=== PATIENT | male | born 1995 | race Two or more races ===

== ENCOUNTER 2022-04-20 19:43 | Inpatient (IN) | payer OTHER ==
[~2022-04-20] VITALS: Ht 175.3 cm; Wt 84.8 kg
[2022-04-20] MEDS ORDERED: INSULIN REGULAR, HUMAN 100 UNITS/ML IVP ONE (21:30)
[2022-04-20 21:31] LABS: GLUCOMETER DEV NAME(LOC) ERT.5; GLUCOSE,POINT OF CARE 402 MG/DL (70-110)
[2022-04-20] MEDS ORDERED: SODIUM CHLORIDE 0.9% 1,000 ML ONE (21:40)
[2022-04-20 21:58] LABS: BASOPHILS % (AUTO) 1.2 % (0.0-2.0); HEMATOCRIT 39.4 % (41-53); HEMOGLOBIN 13.4 g/dL (13.5-17.5); LYMPHOCYTES # (AUTO) 2.3 K/uL (1.0-4.8); LYMPHOCYTES % (AUTO) 46.1 % (22.0-44.0); MEAN CORPUSCULAR HEMOGLOBIN 30.7 pg (26.0-34.0); MEAN CORPUSCULAR VOLUME 90 fL (80-100); MONOCYTES # (AUTO) 0.2 K/uL (0.1-1.0); MONOCYTES % (AUTO) 3.8 % (2.0-9.0); NEUTROPHILS # (AUTO) 2.4 K/uL (1.8-7.7); NEUTROPHILS % (AUTO) 47.9 % (40.0-70.0); PLATELET COUNT (AUTO) 131 K/uL (150-450); RED BLOOD CELL COUNT(AUTO) 4.37 MIL/uL (4.50-5.90); RED CELL DISTRIBUTION WIDTH 12.2 % (11.5-14.5)
[2022-04-20 22:16] LABS: ALANINE AMINOTRANSFERASE 22 U/L (12-78); ALBUMIN 3.5 g/dL (3.4-5.0); ALKALINE PHOSPHATASE 69 U/L (46-116); ANION GAP 10 mmol/L (8-16); ASPARTATE AMINOTRANSFERASE < 5 U/L (15-37); BILIRUBIN,TOTAL 0.3 mg/dL (0.1-1.0); CALCIUM, TOTAL 8.7 mg/dL (8.8-10.5); CARBON DIOXIDE 27 mmol/L (22-29); CHLORIDE 100 mmol/L (98-107); CREATININE 0.66 mg/dL (0.60-1.30); POTASSIUM 3.8 mmol/L (3.5-5.1); SODIUM SERUM 137 mmol/L (136-145); UREA NITROGEN, BLOOD 12 mg/dL (7-18)
[2022-04-20 22:17] LABS: GLOMERULAR FILTR. RATE CALC > 60 mL/min (>60); GLUCOSE,RANDOM 417 mg/dL (70-110)
[2022-04-20 22:32] LABS: ACETONE,BLOOD NEGATIVE (NEGATIVE)
[2022-04-20 22:44] LABS: COVID AG,FIA SOURCE NASAL SWAB
[2022-04-20] MEDS ORDERED: DEXTROSE 50%-WATER 25 GM/50 ML SYRINGE IVP PRN (23:15)
[2022-04-20] MEDS ORDERED: SODIUM CHLORIDE 0.9% 1,000 ML IV ONE (23:15)
[2022-04-20] MEDS ORDERED: ACETAMINOPHEN 325 MG TABLET PO PRN (23:15)
[2022-04-20] MEDS ORDERED: MAGNESIUM HYDROXIDE SUSPENSION 30 ML UDCUP PO PRN (23:15)
[2022-04-20] MEDS ORDERED: ONDANSETRON HCL 4 MG/2 ML VIAL IVP PRN (23:15)
[2022-04-20] MEDS ORDERED: ZOLPIDEM TARTRATE 5 MG TABLET PO PRN (23:15)
[2022-04-20 23:25] LABS: APPEARANCE,URINE CLEAR (CLEAR); BILIRUBIN,URINE NEGATIVE (NEGATIVE); GLUCOSE, URINE (UA) >=1000 mg/dL (NEGATIVE); KETONES,URINE NEGATIVE (NEGATIVE); LEUKOCYTE ESTERASE ,URINE NEGATIVE (NEGATIVE); NITRATE,URINE NEGATIVE (NEGATIVE); OCCULT BLOOD,URINE NEGATIVE (NEGATIVE); PROTEIN,URINE NEGATIVE (NEGATIVE); SPECIFIC GRAVITIY, URINE 1.031 (1.003-1.030); UROBILINOGEN,URINE <=1.0 mg/dL (<=1.0)
[2022-04-20 23:26] LABS: GLUCOMETER DEV NAME(LOC) ERT.5; GLUCOSE,POINT OF CARE 233 MG/DL (70-110)
[2022-04-20 23:31] LABS: AMPHET/METH SCREEN,URINE NEGATIVE (NEGATIVE); BARBITURATE SCREEN, URINE NEGATIVE (NEGATIVE); BENZODIAZEPINES SCREEN,URINE NEGATIVE (NEGATIVE); CANNABINOID SCREEN,URINE NEGATIVE (NEGATIVE); COCAINE SCREEN,URINE NEGATIVE (NEGATIVE); METHADONE SCREEN, URINE NEGATIVE (NEGATIVE); OPIATE SCREEN,URINE NEGATIVE (NEGATIVE)
[2022-04-20 23:38] LABS: PHENCYCLIDINE SCREEN,URINE NEGATIVE (NEGATIVE)
[2022-04-20 23:49] LABS: BACTERIA,URINE None Seen /HPF (None Seen); RBC,URINE None Seen /HPF (0-2); WBC,URINE None Seen /HPF (0-5)
[2022-04-21] MEDS: INSULIN LISPRO 100 UNITS/ML SQ PRN ×3 (07:25→20:44)
[2022-04-21 07:36] LABS: GLUCOMETER DEV NAME(LOC) ERT.5; GLUCOSE,POINT OF CARE 155 MG/DL (70-110)
[2022-04-21] MEDS: FAMOTIDINE 20 MG TABLET PO SCH (11:33)
[2022-04-21 11:42] LABS: GLUCOMETER DEV NAME(LOC) ERT.5; GLUCOSE,POINT OF CARE 197 MG/DL (70-110)
[2022-04-21 17:39] VITALS: BP 120/72
[2022-04-21 20:24] VITALS: BP 125/67
[2022-04-21] MEDS: INSULIN GLARGINE,HUM.REC.ANLOG 100 UNITS/ML SQ SCH ×2 (20:45→21:00)
[2022-04-21 21:36] LABS: GLUCOMETER DEV NAME(LOC) 6N.1; GLUCOSE,POINT OF CARE 316 MG/DL (70-110)
[2022-04-22 04:28] VITALS: BP 118/65
[2022-04-22] MEDS: INSULIN LISPRO 100 UNITS/ML SQ PRN ×4 (05:59→20:24)
[2022-04-22 07:06] LABS: GLUCOMETER DEV NAME(LOC) 6N.1; GLUCOSE,POINT OF CARE 215 MG/DL (70-110)
[2022-04-22 07:53] VITALS: BP 120/58
[2022-04-22] MEDS: FAMOTIDINE 20 MG TABLET PO SCH (08:08)
[2022-04-22 11:46] LABS: GLUCOMETER DEV NAME(LOC) 6N.1; GLUCOSE,POINT OF CARE 307 MG/DL (70-110)
[2022-04-22 15:41] VITALS: BP 103/61
[2022-04-22] MEDS: MetFORMIN HCL 500 MG TABLET PO SCH (17:17)
[2022-04-22 17:52] LABS: GLUCOMETER DEV NAME(LOC) 6N.1; GLUCOSE,POINT OF CARE 292 MG/DL (70-110)
[2022-04-22 19:41] VITALS: BP 122/73
[2022-04-22 20:14] VITALS: BP 111/64
[2022-04-22] MEDS ORDERED: INSULIN GLARGINE,HUM.REC.ANLOG 100 UNITS/ML SQ SCH (21:00)
[2022-04-22 21:41] LABS: GLUCOMETER DEV NAME(LOC) 6N.1; GLUCOSE,POINT OF CARE 215 MG/DL (70-110)
[2022-04-23 04:53] VITALS: BP 106/59
[2022-04-23] MEDS: INSULIN LISPRO 100 UNITS/ML SQ PRN (05:52)
[2022-04-23 08:12] VITALS: BP 110/69
[2022-04-23] MEDS: FAMOTIDINE 20 MG TABLET PO SCH (08:21)
[2022-04-23] MEDS: MetFORMIN HCL 500 MG TABLET PO SCH (08:21)
[2022-04-23 09:47] LABS: GLUCOMETER DEV NAME(LOC) 6N.1; GLUCOSE,POINT OF CARE 253 MG/DL (70-110)
[2022-04-23] MEDS ORDERED: FAMO20 PO (10:54)
[2022-04-23] MEDS ORDERED: INSLAN SQ (10:55)
[2022-04-23] MEDS ORDERED: METF-1211 PO (10:56)
[2022-04-23] MEDS ORDERED: ACET-2247 PO (10:56)
[2022-04-23] MEDS ORDERED: MAGN-169 PO (11:01)
[2022-04-23] MEDS ORDERED: INSULIN GLARGINE,HUM.REC.ANLOG 100 UNITS/ML SQ SCH (21:00)
== END 2022-04-23 13:00 | DRG 637 ==
LOC: EMS 19:46 → 6N 04-21 16:29 → 6S 04-22 20:00
PROVIDERS: ADMIT Internal Medicine; ATTEND Internal Medicine
DX: E11.65 Type 2 diabetes mellitus with hyperglycemia (principal); U07.1 COVID-19; Z83.3 Family history of diabetes mellitus; Z91.19 Patient's noncompliance with other medical treatment and regimen
CPT/HCPCS: 80053; 81001; 81003; 82009; 82948; 82962; 83036; 85025; 93005; 99285; G0480; J1815; J7030